=== PATIENT | male | born 2000 | race Caucasian/White ===

== ENCOUNTER 2022-04-05 15:09 | Emergency (ER) | payer SELFPAY ==
[2022-04-05] MEDS ORDERED: Lidocaine 1% (PF) 30 ML VIAL ONE (16:24)
== END 2022-04-05 17:15 | disposition home or self-care (01) ==
LOC: CSHERS 15:09
DX: S61.210A Laceration without foreign body of right index finger without damage to nail, initial encounter (principal); W26.0XXA Contact with knife, initial encounter
CPT/HCPCS: 12001; J2001

== ENCOUNTER 2022-08-21 19:20 | Emergency (ER) | payer OTHER ==
[2022-08-22] MEDS ORDERED: Bacitracin 1 PK ONE (04:17)
[2022-08-22] MEDS ORDERED: Cephalexin 250 MG CAP ONE (04:17)
== END 2022-08-22 04:32 | disposition home or self-care (01) ==
LOC: CSHERS 19:20
DX: L60.0 Ingrowing nail (principal); L03.032 Cellulitis of left toe
CPT/HCPCS: 11750